=== PATIENT | male | born 1995 | race Caucasian/White ===

== ENCOUNTER 2020-05-11 07:41 | Emergency (ER) | payer OTHER ==
[~2020-05-11] VITALS: Ht 177.8 cm; Wt 74.8 kg
[2020-05-11 08:11] LABS: ABSOLUTE NEUTROPHILS 4.2 thou/uL (1.4-8.2); BASOPHILS 0.5 % (0.0-2.0); EOSINOPHILS 0.3 % (0.0-3.0); HEMATOCRIT 47.2 % (42.0-52.0); LYMPHOCYTES 24.5 % (24.0-44.0); MCH 31.5 pg (26.0-34.0); MCHC 33.8 g/dL (28.0-37.0); MCV 93.1 fL (80.0-100.0); MONOCYTES 8.7 % (1.0-8.0); PLATELET COUNT 182 thou/uL (150-400); RBC 5.07 mil/uL (4.50-6.00); RDW 13.5 % (10.5-14.5); WBC 6.3 thou/uL (4.0-11.0)
[2020-05-11 08:23] LABS: CALCIUM 9.4 mg/dL (8.5-10.1); CREATININE 1.5 mg/dL (0.7-1.3); POTASSIUM 3.5 mmol/L (3.5-5.1)
[2020-05-11 08:30] LABS: ALBUMIN 4.5 g/dL (3.4-5.0); TOTAL BILIRUBIN 0.9 mg/dL (0.2-1.0); TOTAL PROTEIN 8.2 g/dL (6.4-8.2)
[2020-05-11] MEDS ORDERED: HALOPERIDOL 2 MG2 MG PO (09:48)
[2020-05-11 09:56] VITALS: BP 164/84
[2020-05-12] MEDS ORDERED: PROTONIX40 M4 PO (15:34)
[2020-05-12] MEDS ORDERED: ZOFRAN ODT4 MG PO (15:47)
[2020-05-12] MEDS ORDERED: DICYCLOMINE HCL20 MG PO (15:47)
[2020-05-12] MEDS ORDERED: ATIVAN0.5 M1 PO (15:52)
== END 2020-05-11 09:57 | disposition home or self-care (01) ==
LOC: ER 07:41
PROVIDERS: Emergency Medicine
DX: R11.10 Vomiting, unspecified (principal); F12.90 Cannabis use, unspecified, uncomplicated; K21.9 Gastro-esophageal reflux disease without esophagitis

== ENCOUNTER 2020-05-12 14:06 | Emergency (ER) | payer OTHER ==
[~2020-05-12] VITALS: Ht 177.8 cm; Wt 70.3 kg
[~2020-05-12 14:06] MED LIST: HALOPERIDOL 2 MG2 MG PO
[2020-05-12] MEDS ORDERED: PROTONIX40 M4 PO (15:34)
[2020-05-12] MEDS ORDERED: DICYCLOMINE HCL20 MG PO (15:47)
[2020-05-12] MEDS ORDERED: ZOFRAN ODT4 MG PO (15:47)
[2020-05-12 15:52] VITALS: BP 131/80
[2020-05-12] MEDS ORDERED: ATIVAN0.5 M1 PO (15:52)
== END 2020-05-12 16:03 | disposition home or self-care (01) ==
LOC: ER 14:06
DX: R25.8 Other abnormal involuntary movements (principal); T42.4X5A Adverse effect of benzodiazepines, initial encounter; K21.9 Gastro-esophageal reflux disease without esophagitis; Z79.899 Other long term (current) drug therapy; Z88.8 Allergy status to other drugs, medicaments and biological substances; Y92.89 Other specified places as the place of occurrence of the external cause

== ENCOUNTER 2021-01-05 21:28 | Emergency (ER) | payer OTHER ==
[~2021-01-05] VITALS: Ht 177.8 cm; Wt 79.4 kg
[~2021-01-05 21:28] MED LIST changes: +ATIVAN0.5 M1 PO; +DICYCLOMINE HCL20 MG PO; +PROTONIX40 M4 PO; +ZOFRAN ODT4 MG PO
[2021-01-05] MEDS ORDERED: BENTYL 10 MG CA10 MG PO (21:49)
[2021-01-05] MEDS ORDERED: DULOXETINE HCL30 MG PO (21:49)
[2021-01-05] MEDS ORDERED: PROTONIX 20 MG20 MG PO (21:49)
[2021-01-05] MEDS ORDERED: ALLERGY RELIEF180 MG PO (21:50)
[2021-01-05] MEDS ORDERED: QUETIAPINE FUMA25 MG PO (21:50)
[2021-01-05] MEDS ORDERED: NEURONTIN 300M300 M2 PO (21:50)
[2021-01-05] MEDS ORDERED: BENZTROPINE ME0.5 MG PO (21:51)
[2021-01-05] MEDS ORDERED: HYDROXYZINE PAM50 MG PO (21:51)
[2021-01-05 22:44] LABS: ABSOLUTE NEUTROPHILS 13.2 thou/uL (1.4-8.2); BASOPHILS 0.1 % (0.0-2.0); HEMATOCRIT 48.5 % (42.0-52.0); HEMOGLOBIN 16.8 gm/dL (14.0-18.0); LYMPHOCYTES 8.9 % (24.0-44.0); MCH 31.5 pg (26.0-34.0); MCHC 34.7 g/dL (28.0-37.0); MCV 90.8 fL (80.0-100.0); MONOCYTES 8.9 % (1.0-8.0); PLATELET COUNT 237 thou/uL (150-400); POLYS 82.1 % (36.0-66.0); RBC 5.34 mil/uL (4.50-6.00)
[2021-01-05 22:53] LABS: CALCIUM 9.6 mg/dL (8.5-10.1); CREATININE 1.8 mg/dL (0.7-1.3); TOTAL BILIRUBIN 1.1 mg/dL (0.2-1.0)
[2021-01-05 22:56] LABS: POTASSIUM 2.9 mmol/L (3.5-5.1)
[2021-01-05 23:16] LABS: ALBUMIN 5.1 g/dL (3.4-5.0)
[2021-01-06 00:16] LABS: URINE BILIRUBIN 1+ (Negative); URINE BLOOD NEGATIVE (Negative); URINE CLARITY CLEAR; URINE COLOR YELLOW; URINE GLUCOSE-RANDOM* NEGATIVE (Negative); URINE KETONES 2+ (Negative); URINE LEUKOCYTES-REFLEX NEGATIVE (Negative); URINE PROTEIN (DIPSTICK) 1+ (Negative); URINE SPECIFIC GRAVITY >= 1.030 (1.005-1.035); URINE UROBILINOGEN 0.2 E.U./dl (0.2-1.0)
[2021-01-06 00:19] LABS: URINE NITRITE-REFLEX POSITIVE (Negative)
[2021-01-06 00:35] LABS: BACTERIA-REFLEX 1-9 Few /HPF (None Seen); MUCUS >6 Heavy strn/LPF (None Seen); SQUAMOUS 0-3 Few /LPF (0-3); URINE RBC 1-2 Rare /HPF (NONE SEEN); URINE WBC-REFLEX 0-5 Rare /HPF (0-5)
[2021-01-06 00:36] LABS: CRYSTALS None Seen /LPF (None Seen); HYALINE CASTS 4-10 Moderate /LPF (None Seen)
[2021-01-06] MEDS ORDERED: PHENERGAN 25 MG25 MG PO (01:24)
[2021-01-06] MEDS ORDERED: PROTONIX40 MG PO (01:24)
[2021-01-06] MEDS ORDERED: MACROBID 100 M100 M1 PO (01:26)
[2021-01-06 01:35] VITALS: BP 113/59
[2021-01-07] MEDS ORDERED: XANAX 0.5 MG0.5 MG PO (07:17)
[2021-01-07] MEDS ORDERED: ZOFRAN ODT4 MG PO (07:17)
== END 2021-01-06 02:00 | disposition home or self-care (01) ==
LOC: ER 21:28
PROVIDERS: Emergency Medicine
DX: N39.0 Urinary tract infection, site not specified (principal); Z20.822 Contact with and (suspected) exposure to COVID-19; E87.6 Hypokalemia; D72.829 Elevated white blood cell count, unspecified; R10.84 Generalized abdominal pain; R11.2 Nausea with vomiting, unspecified; F41.9 Anxiety disorder, unspecified; K21.9 Gastro-esophageal reflux disease without esophagitis; Z88.9 Allergy status to unspecified drugs, medicaments and biological substances

== ENCOUNTER 2021-01-06 09:12 | Emergency (ER) | payer OTHER ==
[~2021-01-06] VITALS: Ht 177.8 cm; Wt 79.4 kg
[~2021-01-06 09:12] MED LIST changes: +ALLERGY RELIEF180 MG PO; +BENTYL 10 MG CA10 MG PO; +BENZTROPINE ME0.5 MG PO; +DULOXETINE HCL30 MG PO; +HYDROXYZINE PAM50 MG PO; +MACROBID 100 M100 M1 PO; +NEURONTIN 300M300 M2 PO; +PHENERGAN 25 MG25 MG PO; +PROTONIX 20 MG20 MG PO; +PROTONIX40 MG PO; +QUETIAPINE FUMA25 MG PO
[2021-01-06 09:47] LABS: CALCIUM 8.8 mg/dL (8.5-10.1); CREATININE 1.5 mg/dL (0.7-1.3); POTASSIUM 3.5 mmol/L (3.5-5.1)
[2021-01-06 10:26] VITALS: BP 147/94
[2021-01-07] MEDS ORDERED: ZOFRAN ODT4 MG PO (07:17)
[2021-01-07] MEDS ORDERED: XANAX 0.5 MG0.5 MG PO (07:17)
== END 2021-01-06 10:33 | disposition home or self-care (01) ==
LOC: ER 09:12
PROVIDERS: Student in an Organized Health Care Education/Training Program
DX: F12.90 Cannabis use, unspecified, uncomplicated (principal); R11.2 Nausea with vomiting, unspecified; F41.9 Anxiety disorder, unspecified; K21.9 Gastro-esophageal reflux disease without esophagitis; Z79.899 Other long term (current) drug therapy; Z79.891 Long term (current) use of opiate analgesic; Z79.1 Long term (current) use of non-steroidal anti-inflammatories (NSAID); Z88.6 Allergy status to analgesic agent; Z88.8 Allergy status to other drugs, medicaments and biological substances

== ENCOUNTER 2021-01-07 05:36 | Emergency (ER) | payer OTHER ==
[~2021-01-07] VITALS: Ht 177.8 cm; Wt 79.4 kg
[2021-01-07 06:28] LABS: ABSOLUTE NEUTROPHILS 7.5 thou/uL (1.4-8.2); BASOPHILS 0.3 % (0.0-2.0); EOSINOPHILS 0.1 % (0.0-3.0); HEMATOCRIT 41.6 % (42.0-52.0); LYMPHOCYTES 16.9 % (24.0-44.0); MCH 32.3 pg (26.0-34.0); MCHC 35.2 g/dL (28.0-37.0); MCV 91.6 fL (80.0-100.0); MONOCYTES 8.4 % (1.0-8.0); PLATELET COUNT 172 thou/uL (150-400); POLYS 74.3 % (36.0-66.0); RBC 4.54 mil/uL (4.50-6.00); RDW 12.8 % (10.5-14.5); WBC 10.2 thou/uL (4.0-11.0)
[2021-01-07 06:33] LABS: HEMOGLOBIN 14.6 gm/dL (14.0-18.0)
[2021-01-07 06:50] LABS: ALBUMIN 3.8 g/dL (3.4-5.0); CALCIUM 8.4 mg/dL (8.5-10.1); CREATININE 1.3 mg/dL (0.7-1.3); POTASSIUM 3.1 mmol/L (3.5-5.1); TOTAL BILIRUBIN 0.9 mg/dL (0.2-1.0); TOTAL PROTEIN 7.1 g/dL (6.4-8.2)
[2021-01-07 07:02] VITALS: BP 172/92
[2021-01-07] MEDS ORDERED: XANAX 0.5 MG0.5 MG PO (07:17)
[2021-01-07] MEDS ORDERED: ZOFRAN ODT4 MG PO (07:17)
== END 2021-01-07 07:40 | disposition home or self-care (01) ==
LOC: ER 05:36
PROVIDERS: Emergency Medicine
DX: R11.2 Nausea with vomiting, unspecified (principal); F41.9 Anxiety disorder, unspecified; K21.9 Gastro-esophageal reflux disease without esophagitis; Z79.899 Other long term (current) drug therapy; Z88.9 Allergy status to unspecified drugs, medicaments and biological substances